=== PATIENT | female | born 1965 | race Caucasian/White ===

== ENCOUNTER 2023-03-19 15:41 | Outpatient (CLI) | payer BC, SELFPAY ==
--- NOTE | 2023-03-19 16:00 | CRLHL7_ITS ---
For Patients: As a result of the Century Cures Act, medical imaging exams and procedure reports are released immediately into your electronic medical record. You may view this report before your referring provider. If you have questions, please contact your health care provider. INDICATION: Postmenopausal bleeding. TECHNIQUE: Transabdominal and transvaginal scanning was performed. Transvaginal scanning was performed to optimally evaluate the endometrium and adnexa. Ovarian blood flow was evaluated with color-flow and pulsed Doppler. COMPARISON: None. FINDINGS: The postmenopausal uterus is normal in size and shape. The uterus measures 5.0 x 1.6 x 3.0 cm. A 1.9 x 1.6 x 1.1 cm posterior cervical fibroid is demonstrated as well as an 8 mm fibroid in the anterior lower uterine segment or superior cervix. The endometrial stripe is normal in thickness at 2 mm. The ovaries are normal in size. The right ovary measures 1.7 x 1.7 x 1.4 cm and left 1.5 x 0.8 x 0.7 cm. Ovarian blood flow is demonstrated with color-flow and pulsed Doppler. No adnexal mass is evident. No free fluid is demonstrated. IMPRESSION: 1. Normal-thickness postmenopausal endometrial stripe thickness at 2 mm. 2. 1.9 cm posterior cervical fibroid and 8 mm fibroid in the anterior lower uterine segment were superior cervix. Dictated by eSbastien Cano MD @ 03/21/2023 7:09:30 AM (Electronically Signed)
== END 2023-03-19 15:42 | disposition home or self-care (01) ==
LOC: US 15:41
PROVIDERS: PCP Family Medicine; Visit Provider Obstetrics & Gynecology
DX: N95.0 Postmenopausal bleeding (principal); R93.89 Abnormal findings on diagnostic imaging of other specified body structures; D25.9 Leiomyoma of uterus, unspecified
CPT/HCPCS: 76830; 76856